=== PATIENT | female | born 1985 | race Hispanic/Latino ===

== ENCOUNTER 2019-01-25 11:34 | Emergency (ER) | payer SELFPAY ==
[2019-01-25 12:50] VITALS: BP 155/105
--- NOTE | 2019-01-25 12:55 | Emergency Department Report ---
Chief Complaint: Dental/Oral Stated Complaint: RT SIDE ABCESS/PAIN Time Seen by Provider: 01/25/19 12:54 - Exam Vital Signs: Vital Signs 01/25/19 12:45 Temperature 98.2 F Pulse Rate 85 Respiratory 18 Rate Blood Pressure 155/105 O2 Sat by Pulse 98 Oximetry MSE screening note: Focused history and physical exam performed. Due to findings the following was ordered: DENTAL ABSCESS ED Disposition for MSE Condition: Stable
== END 2019-01-25 18:22 | disposition left against medical advice (07) ==
LOC: ED 11:34
DX: K04.7 Periapical abscess without sinus (principal)
CPT/HCPCS: 99281